=== PATIENT | female | born 1960 | race Caucasian/White ===

== ENCOUNTER 2016-07-18 13:00 | Emergency (ER) | payer OTHER ==
[2016-07-18] MEDS ORDERED: FENTANYL 100 MCG/2 ML VIAL ONE ×3 (13:47→16:27)
--- NOTE | 2016-07-18 14:50 | RAD ---
Exam: Pelvis and two-view left hip COMPARISON: CT abdomen and pelvis 05/02/2016 INDICATION: Left hip pain. Was moving left leg over right leg and felt a pop in left hip, now with left leg pain. Findings: Portably obtained AP views of the pelvis and AP and crosstable lateral views of left hip were obtained. There is diffuse bony osteopenia. There is an oblique fracture involving the subtrochanteric portion of the proximal left femur. There is up to one shaft's width anterior and one half shafts width medial of the distal fracture fragment and posterior angulation of the distal fracture fragment. No additional fracture is identified within the pelvis or left hip. Femoral head remains within the acetabulum. The coccyx is not visualized and was absent on the prior CT. Ostomy is noted. Dense vascular calcifications are present. IMPRESSION: Displaced, angulated fracture of the subtrochanteric proximal left femur as above. Osteopenia.
--- NOTE | 2016-07-18 14:52 | RAD ---
Exam: Portable chest COMPARISON: CT 05/02/2016 and radiographs 05/02/2016 and 05/01/2016 INDICATION: Femur fracture. Fall. FINDINGS: A semierect AP portable view of the chest demonstrates cardiomegaly. A linear opacity within the retrocardiac region likely reflects atelectasis. Tiny left-sided pleural effusion is suggested. These were present on the prior CT. A few old left-sided rib fractures are seen. No acute displaced rib fracture is identified. IMPRESSION: Stable cardiomegaly. Probable left basilar atelectasis and small left sided pleural effusion.
[2016-07-18] MEDS ORDERED: MORPHINE SULFATE 4 MG/ML SYRINGE ONE (15:12)
[2016-07-18 15:27] LABS: ABSOLUTE NEUTROPHIL COUNT 5.4 K/mm3 (1.8-7.7); BASO % 0.1 % (0.2-1.0); EOS # 0.1 (0.0-0.5); HEMATOCRIT 27.1 % (37.0-47.0); HEMOGLOBIN 8.4 gm/l (12.0-16.0); IMM NEUT% 0.4 % (0-1); LYMPH # 0.9 (1.0-4.8); LYMPH % 12.8 % (15-45); MEAN CELL VOLUME 99.3 fl (81.0-99.0); MEAN CORPUSCULAR HEMOGLOBIN 30.8 pg (27.0-31.0); MEAN PLATELET VOLUME 11.5 fl (7.4-10.4); MONO # 0.5 (0.0-0.8); MONO % 7.5 % (4-12); NEUT % 78.2 % (43-75); PLATELET COUNT 173 K/mm3 (130-400); RED CELL DISTRIBUTION WIDTH 14.6 % (11.5-14.5)
[2016-07-18 17:00] LABS: PLATELET ESTIMATE NORMAL (NORMAL)
[2016-07-18] MEDS ORDERED: SODIUM CHLORIDE 0.9% IV ONE (17:00)
[2016-07-18] MEDS ORDERED: FENTANYL IV ONE (17:00)
[2016-07-18] MEDS ORDERED: LACTATED RINGERS 1,000 ML ONE (17:08)
== END 2016-07-18 17:53 | disposition short-term general hospital (02) ==
LOC: ED 13:00
DX: S72.8X2A Other fracture of left femur, initial encounter for closed fracture (principal); N17.9 Acute kidney failure, unspecified; X58.XXXA Exposure to other specified factors, initial encounter; Y92.003 Bedroom of unspecified non-institutional (private) residence as the place of occurrence of the external cause
CPT/HCPCS: 85025; 80048; 71010; 73502; 96375; 96376; 99284; 96374; 99285; J3010 ×3; J2270; J7120; J7050